=== PATIENT | female | born 1960 | race Caucasian/White ===

== ENCOUNTER → 2022-08-13 | Outpatient (CLI) | payer OTHER, SELFPAY ==
--- NOTE | 2022-08-13 14:40 | FLU_PTH ---
PATIENT: FELIPA CONTRERAS LOC: [facility] U#:[id number] AGE/SX: 62/F ROOM: RE08/13/[address]: Dr. Wilfrid Gomez MD : 1960 BED: DIS: 08/13/2022 SPEC #: [id number] RECD: 08/13/22 17:08 STATUS: ANI SUNSHINE #: [id number] DAWOOD: 08/13/22 14:[address]: Wilfrid Gomez DEPT: CYTOLOGY RECD BY: Cassie Johnson ENTERED: 08/16/22 08:35 SP TYPE: Fluid OTHR DR: Dr. Anali Cohen DO Tissues: A - Thyroid gland, NOS B - Thyroid gland, NOS C - Thyroid gland, NOS D - Thyroid gland, NOS Procedures: Special Stain Group II Surgery Specimen Level IV Cytospin Fluid Cytology Other HEADER OPERATION: Fine needle aspiration, right mid and left mid thyroid PRE-OP DIAGNOSIS: Multiple thyroid nodules TISSUE SUBMITTED: A - FNA, right mid thyroid nodule fluid, B - FNA, right mid thyroid nodule x4 slides, C - FNA, left mid inferior thyroid nodule fluid, D - FNA, left mid inferior thyroid nodule x4 slides DIAGNOSIS CYTOLOGY A. Fine needle aspiration, right mid thyroid nodule (cytospin and cell block): Negative for malignant cells. See comment. B. Fine needle aspiration, right mid thyroid nodule (smears): Negative for malignant cells. See comment. C. Fine needle aspiration, left mid inferior thyroid nodule (cytospin and cell block): Benign, consistent with benign follicular/colloid nodule with cystic change (Thaxton Category II). See comment. D. Fine needle aspiration, left mid inferior thyroid nodule (smears): Benign, consistent with benign follicular/colloid nodule with cystic change (Thaxton Category II). See comment. AM:kasia 08/17/2022 COMMENT A. The specimen primarily contains blood with rare benign follicular cells. B. The specimen primarily contains blood and rare benign follicular cells. The paucity of follicular cells precludes further evaluation. C & D. The Thaxton System for thyroid diagnostic categorization was used in the evaluation of this case. Adequate for evaluation. CYTOLOGY STUDY Slides are reviewed. CYTOLOGY GROSS A - Received is 15 ml of red cloudy fluid with particles labeled with the patient's name and and designated per the requisition as right mid thyroid nodule. Submitted for cytology preparation including cell block. B - Received are four smears labeled with the patient's name and designated per the requisition as right mid thyroid nodule. Submitted for staining. C - Received is 15 ml of red cloudy fluid with particles labeled with the patient's name and and designated per the requisition as left mid inferior thyroid nodule. Submitted for cytology preparation including cell block. D - Received are four smears labeled with the patient's name and designated per the requisition as left mid inferior thyroid nodule. Submitted for staining. / kasia 08/16/2022 TC:5 CPT: 61963 x2, 40495 x4
[2022-08-13 16:07] LABS: Free T3 3.1 pg/mL (2.18-3.98); T4 Free Direct 0.95 ng/dL (0.76-1.46)
[2022-08-16 16:53] LABS: Thyroid Stim Immunoglob <0.10 IU/L (0.00-0.55)
== END | disposition home or self-care (01) ==
LOC: LAB 15:11
PROVIDERS: Internal Medicine Endocrinology, Diabetes & Metabolism; PCP Internal Medicine; Referring Provider Surgery; Visit Provider Surgery
DX: E04.2 Nontoxic multinodular goiter (principal)
CPT/HCPCS: 36415; 84439; 84443; 84445; 84481; 88108; 88161; 88305; 88313

== ENCOUNTER → 2022-09-01 | Outpatient (CLI) | payer OTHER, SELFPAY ==
--- NOTE | 2022-09-01 07:23 | NM_ITS ---
CLINICAL: 62-year-old female with history of thyroid nodularity. I-123 THYROID UPTAKE and SCAN COMPARISON: None available FINDINGS: The patient was administered a 304 uCi I-123 capsule by mouth. The 4-hour I-123 radioactive iodine thyroidal uptake was calculated to be 11.3 % (normal 5 to 25 %). The 24-hour I-123 radioactive iodine thyroidal uptake was calculated to be 37.1 % (normal 5 to 40 %). The I-123 thyroid scan demonstrates homogeneous radiopharmaceutical concentration throughout the left lobe of a U-shaped thyroid gland. A distinct hypofunctioning nodule is defined in the midpole of the right lobe thyroid colloid. NM/Thyroid Image Quant Measure IMPRESSION: 1. NORMAL 4- and 24-hour I-123 radioactive iodine thyroidal uptakes. 2. The I-123 thyroid scan demonstrates a hypofunctioning nodule involving the midpole of the right lobe thyroid colloid. Histopathologic sampling may be indicated. Electronically Signed: Spencer Calderon, at 20:56 EST ,
== END | disposition home or self-care (01) ==
PROVIDERS: PCP Internal Medicine; Referring Provider Surgery; Visit Provider Surgery
DX: E04.9 Nontoxic goiter, unspecified (principal)
CPT/HCPCS: 78014; A9516

== ENCOUNTER → 2022-09-29 | Outpatient (CLI) | payer OTHER, SELFPAY ==
[2022-09-29 14:08] LABS: Free T3 2.8 pg/mL (2.18-3.98); T4 Free Direct 0.84 ng/dL (0.76-1.46); Thyroid Stim Hormone (TSH) 0.14 uIU/mL (0.358-3.74)
== END | disposition home or self-care (01) ==
LOC: LAB 13:16
PROVIDERS: PCP Internal Medicine; Visit Provider Internal Medicine Endocrinology, Diabetes & Metabolism
DX: E05.90 Thyrotoxicosis, unspecified without thyrotoxic crisis or storm (principal)
CPT/HCPCS: 36415; 84439; 84443; 84481

== ENCOUNTER 2022-11-03 11:16 | Observation (INO) | payer OTHER, SELFPAY ==
[2022-11-03] VITALS (14 sets, daily range): BP systolic 112–148; BP diastolic 68–91; PULSE 61–90; RESP 14–18; TEMP 36.4–37.2; O2SAT 94–96; BMI 32.3
[2022-11-03] MEDS: Lactated Ringers 1,000 ML 15 ML IV ×2 (06:45→11:47)
[2022-11-03 07:16] LABS: Hematocrit 39.2 % (37-47); Hemoglobin 13.1 g/dL (12.0-15.0); Mean Corp Hgb Conc 33.4 g/dL (32-36); Mean Corpuscular Hgb 28.7 pg (27.0-32.0); Mean Platelet Vol. 9.2 fl (6.2-12.0); Platelet Count 288 K/mm3 (150-450); RBC Distribution Width CV 12.1 % (11.6-14.6); RBC Distribution Width SD 37.9 fl (35.1-43.9); Red Blood Count 4.56 M/mm3 (4.2-5.4); White Blood Count 5.3 K/mm3 (4.4-11.0)
--- NOTE | 2022-11-03 07:39 | PCM.HP.BLA ---
History and Physical Date of Admission: 11/03/22 Date of Service:? 09/29/22 MR#: [id number] Acct: [id number] Name:FELIPA FRANCO Rep #: [id number] : 1960 ? ? Provider: Dr. Wilfrid Gomez MD Age/Sex:? 62/F ? ? Location: [facility] Status: Signed Intake Vital Signs ? 09/29/2213:46 Height 5 ft 5 in Weight: 192 lb BMI 31.9 BP 125/76 H Blood Pressure Location Rt brachial Position Sitting Respiration 18 Intake Visit Reasons:?DISCUSS THYROID SURGERY Chief Complaint: discuss surgery Criminal Records Technician Required: No Is patient in pain?: No Allergies No Known Allergies Allergy (Unverified 09/29/22 13:46) Medications methimazole 5 mg tablet 5 mg PO .one every other day #30 tabs 09/02/22 [Rx] PFSH Medical History? Cholecystectomy planned Colonoscopy planned Nodular goiter Uterine fibroid Surgical History? History of cervical polypectomy Family History? Sister Breast cancer DiabetesGrandmother Diabetes CVA (cerebral vascular accident)Other Alcohol abuse Bowel disease Social History? Smoking Status:? Former smoker alcohol intake:? current alcohol intake frequency: a few times a week Alcohol type: wine substance use type:? does not use what type of physical activity do you participate in:? walking frequency:? 1-2 times per week HPI HPI HPI: Patient is 62-year-old female who follows up for discussion related to her history of thyroid nodules.? Her initial surgical consultation was 08/13/2022.? She also underwent a thyroid uptake scan on 09/02/2022 that showed a dominant right-sided hypofunctioning nodule.? She presents with her for this evaluation.? Her does most of the initial talking and states that they are all on edge due to a third diagnosis of cancer in one of her sisters over the .? Within this context, they are eager to move forward with what ever has to be done given that cancer remains a consideration.? Mrs. Casas relates that she was recently placed on methimazole through Dr. Antunez of endocrinology and has thyroid function studies pending. Below is recapitulated from patient's initial consultation reason review: Patient is a 62-year-old female who presents for thyroid nodules.? They are referred for surgical consultation from Dr. Antunez.? Patient states that she was told she may have a goiter over 20 years ago, but was told there would be nothing further to follow-up on and the issue was dropped.? However her current presentation is occasioned after patient began experiencing palpitations at night.? She states for the last 1 year she could feel her heart beating and would wake up to this sensation.? She presented to her PCP, Dr. Cohen with this complaint who then requested laboratories and an ultrasound.? Patient states that she went to an ENT physician through [facility] and a fine-needle aspirate was performed of patient's right thyroid nodule.? Unfortunately this biopsy resulted as nondiagnostic due to insufficient material.? She was advised to then follow-up with endocrinology and determine what their recommendation would be. They do not experience difficulty with swallowing.? They do not complain of a new cough.? They do not appreciate new voice changes.? They do have a history of snoring/sleep apnea.? Patient's states that his has a history of snoring, but reports that it is been worst in the last 1 year.? He also comments that she occasionally wakes up gasping for air. To this end there is a history of recent fatigue.? Mrs. Casas reports that overall she sleeps well and denies any issues with insomnia.? However she does not awaken feeling refreshed.? She goes on to detail that of the 8 hours that she is asleep she will only sleep for 5 of those hours.? She reports this really is the majority case for her sleeping.? With her lack of energy she is simply not able to do the things (I) used to do.? She expressly denies this being a manifestation of any sort of depression or anxiety. Additionally, their weight has been overall stable and she comments on may be a 5 pound weight gain since May. ? They do have a history of heat intolerance and states she frequently has sweaty palms. ? Regarding her experience with palpitations, patient states that she was ordered ambulatory telemetry.? She states that she was found to have tachyarrhythmias with a maximum rate of at least 150 bpm.? She is not able to relate what that arrhythmia was called.? She denies any follow-up with cardiology, but was told this may be related to her thyroid issue.? Other symptoms include: No history of tremors.? From a GI perspective patient has had a history of diarrhea, but states this has been more often in the last 1 year.? She is up-to-date on her colonoscopies and her last scope came in 2019 where she was diagnosed with polyps.? She reports her next scope is due in 2023.? She reports that she has had some visual changes of late.? She states she was initially told she has some cataracts, but in her most recent visit she reports that her prescription is changed for the better.? Along with this she notes that she has a history of dry eyes, but is unable to distinguish this from some seasonal allergies. They do have a family history of thyroid disorders.? She reports that she has a couple of sisters who both required medication for their thyroid issue.? She is not able to state whether they deal with overactive or underactive glands.? She also notes that one of her nieces was diagnosed with a multinodular goiter.? No relatives have required surgery.? There is no history of prior radiation exposure. Previous work-up has included thyroid ultrasound.? This identified at least 4 nodules including a dominant right mid nodule that measured 3.4 x 2.2 x 3.9 cm.? Due to presence of solid composition, isoechoic echogenicity, and presence of echogenic foci it was rated a TI-RADS 5.? In the left thyroid lobe radiology noted a 1.4 x 1.5 x 1.1 cm nodule.? This was rated a TI-RADS 4 on the account of a mixed cystic and solid composition, hypoechoic echogenicity, and the presence of punctate echogenic foci.? As stated above a FNA was performed for the right-sided nodule but was deemed nondiagnostic.? Other tests include: TSH: 0.13 (06/02/2022), free T3: 3.4 (06/02/2022), free T4: 0.76 (06/02/2022). ROS General General: No weight change, appetite, fatigue, colon cancer, breast cancer or weakness HEENT HEENT: No difficulty swallowing, eye injury, eye surgery, swollen glands or hoarseness Endo Endocrine: No thyroid disease, diabetes mellitus, thyroid cancer, Hair loss, heat intolerance or cold intolerance Skin Skin: No rash or changing moles Breast Breast: No left breast lump, right breast lump, nipple discharge, breast pain, abnormal mammogram, abnormal US or breast enlargement Musc Musculoskeletal: No back problems, arthritis, rheumatoid arthritis, gout or joint pain Cardio Cardiovascular: No murmur, pacemaker, heart disease, atrial fibrillation, high blood pressure, heart attack, heart stent, palpitations, shortness of breat with exertion or chest pain Psych Psychiatric: No depression, anxiety or hearing voices Resp Respiratory: No shortness of breath, No sleep apnea, No cough, No COPD, No asthma, No emphysema and No wheezing Gastro Gastrointestinal: No abdominal pain, No nausea or vomiting, No diarrhea, No constipation, No blood in stool, No acid reflux, No hemorrhoids, No ulcers, No gallbladder problem and No black,tarry stools Harvey Hematologic: No blood thinners, No blood disorders, No bleeding, No anemia and No blood clots Neuro Neurologic: No system reviewed and no additional complaints, except as documented, No as per HPI, No abnormal gait, No abnormal hearing, No abnormal movements, No abnormal speech, No behavioral changes, No burning sensations, No confusion, No convulsions, No disequilibrium, No dizziness, No localized weakness, No frequent falls, No headache(s), No lack of coordination, No loss of vision, No memory loss, No numbness, No other visual disturbances, No radicular pain, No restless legs, No sensory deficit, No syncope, No tingling, No tremor(s), No weakness and No other Exam Const General: cooperative, no acute distress and anxious Orientation: alert, awake and oriented x3 Neck Other: Easily palpable right thyroid nodule.? No other jugular chain or cervical lymphadenopathy palpable. Assessment and Plan Assessment and Plan (1) Multiple thyroid nodules: ?Status:?Acute ?Comment: Patient is a 62-year-old female, hyperthyroid from an endocrine standpoint, with multiple thyroid nodules that met criteria for FNA biopsy via ACR criteria.? These biopsies were undertaken with ultrasound guidance on the right TI-RADS 5 and left TI-RADS 4 nodules during initial consultation visit 08/13/2022.? Right thyroid nodule was nondiagnostic due to a paucity of follicular cells, but no malignant cells were seen amongst those follicular cells present.? Previously the right thyroid nodule was biopsied, but also had a nondiagnostic result.? Patient's left thyroid nodule returned as a clear, benign Fenwick 2 result.? In the interim since this FNA procedure, patient underwent right uptake scan on 09/02/2022.? This demonstrated a dominant, hypofunctioning right-sided thyroid nodule.? Combining patient's nondiagnostic result with a TI-RADS rating on ultrasound and hypofunctioning appearance on uptake scan, I did recommend surgical intervention to exclude the possibility of cancer.? I held a lengthy conversation with patient and her regarding the surgical options for total thyroidectomy versus hemithyroidectomy.? I shared with them the attendant risks and perceived benefits.? I shared with them about plans for intraoperative nerve monitoring as a means of trying to mitigate the risk for recurrent laryngeal nerve injury.? Ultimately, I did recommend consideration of a total thyroidectomy with intraoperative nerve monitoring.? With this procedure we would like to reduce patient's risk for additional operative intervention even in the instance that pathology did find a cancer since it is probable the size would be somewhere near 4 cm.? Further, it may be seen as advantageous in light of patient's ongoing hyperthyroid state as a means of better regulating her thyroid function postoperatively.? I did share with patient and her that this would mean an expectation for overnight observation with the procedure.? I also did briefly describe post procedure expectations at patient's request.? They are excepting of all of this information and agree with the recommendation for total thyroidectomy. ?Plan: ? Plan for total thyroidectomy with intraoperative nerve monitoring.? We will plan for overnight observational stay with procedure (2) Hyperthyroidism: ?Status:?Acute ?Comment: Anti-TSI was negative.? Patient does not have a hyperfunctioning, but a hypofunctioning nodule of the right thyroid lobe.? Management discussed above.? Patient is currently being treated for hyperthyroidism with methimazole, but most recent TSH?obtained today?indicates further suppression may be required.? We will confer with endocrinology on this issue to minimize patient's perioperative risk. ?Plan: ? Follow-up with endocrinology regarding surgical plan and status of patient's thyroid functions (3) Nodular goiter: ?Status:?Acute ?Comment: Patient with minimal compressive symptomology.? Does endorse a history of snoring and possible sleep apnea. ?Plan: Total thyroidectomy recommended as discussed above I have examined the patient and the H&P has been reviewed. There are no clinical changes since date of exam. Patient's questions were answered to their satisfaction and they are ready to proceed with the procedure as discussed above. We have confirmed that patient will be observed overnight for neck monitoring and calcium check in the a.m.
--- NOTE | 2022-11-03 08:00 | THYROID_PTH ---
PATIENT: FELIPA CONTRERAS LOC: [facility] U#:[id number] AGE/SX: 62/F ROOM: ND312 RE11/03/[address]: Dr. Wilfrid Gomez MD : 1960 BED: 1 DIS: 11/04/2022 SPEC #: [id number] RECD: 11/03/22 13:42 STATUS: ANI REJohanna #: [id number] DAWOOD: 11/03/22 08:[address]: Wilfrid Gomez DEPT: SURGICAL PATHOLOGY RECD BY: Cassie Johnson ENTERED: 11/04/22 10:00 SP TYPE: THYROID OTHR DR: Dr. Anali Cohen, DO Tissues: Thyroid gland, NOS Procedures: Surgery Specimen Level V HEADER OPERATION: Total thyroidectomy, intraoperative nerve monitoring PRE-OP DIAGNOSIS: Multiple thyroid nodules, hyperthyroidism, nodular goiter TISSUE SUBMITTED: Total thyroid, stitch right superior pole MICROSCOPIC DIAGNOSIS Thyroid, total thyroidectomy: Multinodular goiter. Focal chronic inflammation. One minute benign perithyroidal lymph node. SJ:kasia 11/05/2022 COMMENT Please make reference to previous specimen ([id number]) fine needle aspiration, right mid thyroid nodule, FNA (A&B), ?negative for malignancy cells? and (C&D) right inferior thyroid nodule, FNA, ?benign, consistent with benign follicular cells/colloid nodule with cystic changes.? MICROSCOPIC DESCRIPTION Slides are reviewed. GROSS DESCRIPTION Received in fixative is one container labeled with the patient's name and designated thyroid. The specimen consists of a thyroidectomy specimen measuring 7 x 5 x 2.2 cm. The right lobe measures 4.5 x 5 x 2.2. The isthmus measures 2 x 1 x 0.5 cm. The left lobe measures 5.6 x 2.2 x 2 cm. The specimen weighs 34 gm and is differentially inked as follows: entire posterior surface ? black, right lobe ? blue, left lobe ? green and isthmus ? red. Serial sections of the right lobe reveal a gelatinous nodule with hemorrhage and focal microcalcifications measuring 4 x 2.2 x 2 cm. Serial sections of the isthmus do not reveal mass lesions. Serial sections of the left lobe reveal a gelatinous nodule measuring 4 x 2 x 1.8 cm. This nodule appears to be lobulated. Public Health Physician sections are submitted in ten cassettes as follows: 1 ? isthmus, 2-5 ? right lobe of thyroid, 6-10 ? left lobe of thyroid. / AM:kasia 11/04/2022 TC:5 CPT: 00886
--- NOTE | 2022-11-03 11:06 | PCM.OPRPT ---
Report of Operation Date of Procedure: 11/03/22 Pre-Operative Diagnosis: 1. Multinodular goiter with nondiagnostic right thyroid nodule 2. Hyperthyroidism on methimazole Post-Operative Diagnosis: Same Surgery/Procedure Performed:: Total thyroidectomy with intraoperative nerve monitoring Description of Surgical Findings:: ? Dominant right mid to inferior pole thyroid nodule easily from overlying sternothyroid muscle ? Excellent Nims signals from bilateral recurrent laryngeal nerves ? Grossly identified bilateral superior parathyroid glands in left inferior parathyroid gland Surgeon: Wilfrid Gomez rice dryer mechanic: Louisa Bailey Type of Anesthesia: General/Supplemental Anesthesiologist: Hamlet Graves Specimen's removed: Total thyroid with stitch marking right superior pole Drains: None Estimated Blood Loss (mL): 10 Description of Procedure: After appropriate identification in the preoperative holding area, the patient was brought to the operating room where she was positioned supine with arms tucked taking care to pad the ulnar nerve bilaterally. Induction of general endotracheal anesthetic was begun and a NIMS tube was placed under glidescope view to confirm coaptation with the vocal cords anteriorly. Tube was then secured and the patient was positioned with a shoulder roll so that her head was in extension but supported. The Nims electrodes were placed and connected to the monitor. We had appropriate resistance showing on the monitor and tapping at the level of the cricoid produce a graphical representation of the impulse on the monitor. Patient's neck was then prepped and draped in usual sterile fashion and a formal timeout was conducted with those present. The lowest skin fold to the sternal notch was selected for incision site (this resided approximately 1 and half fingerbreadths cephalad to the notch). Then our incision site was instilled with local anesthetic and a transverse cervical incision was extended for 2.5 cm on either side of midline. Electrocautery was used to deepen this incision through the level of the platysma. Subplatysmal flaps were raised with the use of electrocautery and blunt dissection. The strap muscles were then divided along the medial raphe bringing us down to the level of the thyroid. Capsular attachments to the thyroid were divided with the use of electrocautery. Retractors were placed providing visualization of the superior pole of the right lobe of the thyroid. The vessels of the superior pole were sequentially ligated with the use of the LigaSure device. As we moved towards the thyroid gland away from the pole vessels, we encountered a dominant right mid-inferior nodule but found this easily from the overlying strap muscles. We then moved inferiorly and divided those polar vessels with LigaSure. The inferior parathyroid gland was grossly visualized and preserved with this division. With the poles freed the thyroid was mobilized medially by bluntly the remaining strap muscle fibers from the thyroid capsule and using LigaSure to divide the middle thyroid vein. While retracting the thyroid medially, I used meticulous blunt dissection parallel to the presumed course of the recurrent laryngeal nerve and exposed the tracheoesophageal groove. Here I encountered clear evidence of these under both some and shortly thereafter a positive signal from our Nims system. The nerve positively identified, I began carefully dissecting off the remaining tracheal attachments around the area of the nerve. The thyroid proved to be somewhat elastic in this region so it from the trachea rather nicely using limited blunt dissection and bipolar energy to divide any vessels encountered. Once the right thyroid lobe was elevated at least 2 to 3 mm anterior to the insertion point, electrocautery was used to remove the isthmus from the anterior surface of the trachea. There did not appear to be a pyramidal lobe when the isthmus was examined superiorly. We then moved to removal of the left thyroid lobe with a similar technique taking care to remove the strap muscles from their capsular attachments to the lobe. The superior pole vessels were taken in like fashion with use of LigaSure energy. The inferior pole vessels and middle thyroid vein were also divided in this fashion. As a poles were taken I believed a grossly observed the left superior parathyroid and left inferior parathyroid glands tucked within their respective soft tissue locations. I minimized any dissection in this area to avoid risk for hypoparathyroidism postoperatively. As the thyroid was medialized and removed from the surgical bed I performed very fine blunt dissection along the attachments between the thyroid and the trachea. I encountered a positive signal with our Nims system and using some additional blunt dissection was able to uncover a broad-based left recurrent laryngeal nerve. Additional fine blunt dissection was used to remove the remaining thyroid attachments to the trachea at the ligament of Nicholson. I used a fine right angle to develop a plane between the projected course of the nerve and the remaining ligament of Nicholson. Given the dense adherence to the trachea at this point, I elected to leave a minuscule ~2 mg thyroid remnant and placed 2 silk ligatures around this bundle of thyroid tissue and sharply divided the thyroid distal to these ligatures. Nerve function was confirmed with our Nims system. Again, once we were 2 to 3 mm away from the area of the nerve insertion, the gland was removed from the trachea with the use of electrocautery. Our final specimen was marked with a 3-0 Vicryl stitch through the right upper pole and passed off the field for pathologic processing. Both surgical cavities were inspected for hemostasis; closer to the nerve there was some additional oozing and Surgicel hemostatic agent was placed bilaterally while pressure was applied. Once this pressure was relieved, the surgical cavity was again inspected and we found hemostasis to be intact on the right. On the left side there was still some persistent oozing just superior to the insertion site of the nerve so I, using great caution, used electrocautery to obtain hemostasis. Again, Surgicel was placed over the site and this time it remained unsaturated. The platysmal flaps were closed with interrupted 3-0 Vicryl. Some additional local anesthetic was infiltrated throughout the dermis and the skin was closed in a subcuticular fashion using 4-0 Monocryl. Steri-Strips were applied. Telfa and Tegaderm were used as a dressing. The patient was then awakened from anesthetic without event and was taken to PACU for ongoing recovery. Her voice quality was noted to be normal within the operating room following extubation. Complications None Admit VTE Documentation VTE Mechan Device Prophylaxis: SCD's Procedures Endocrine CF Procedures [id number]: [id number] Removal of thyroid
[2022-11-03] MEDS: 0.9% Normal Saline 1,000 ML 125 ML IV ×2 (13:14→21:31)
[2022-11-03] MEDS: Ibuprofen 400 MG Tablet PO (17:09)
[2022-11-03] MEDS: Calcium Carb/Vitamin D 1 TABLET Tablet PO (17:09)
[2022-11-03] MEDS: BENZOCAINE/MENTHOL 1 LOZENGE MUCOUS MEM (18:50)
[2022-11-04] MEDS: Ibuprofen 400 MG Tablet PO ×3 (00:05→11:24)
[2022-11-04 02:31] VITALS: BP 123/73; PULSE 71; RESP 16; TEMP 37.2; O2SAT 96
[2022-11-04] MEDS: Levothyroxine 137 MCG Tablet PO (05:23)
[2022-11-04] MEDS: 0.9% Normal Saline 1,000 ML 125 ML IV (05:23)
[2022-11-04 07:11] VITALS: PULSE 90
[2022-11-04 07:17] LABS: PTHIN 8.5 pg/mL (18.4-80.1)
[2022-11-04 07:19] LABS: Anion Gap 6 (5-15); BUN 15 mg/dL (7-18); BUN/Creat Ratio 15.2 RATIO (10-20); Calcium,Total 7.9 mg/dL (8.5-10.1); Chloride 108 mmol/L (98-107); Creatinine, Serum 0.99 mg/dL (0.55-1.02); EST Glomerular Filtration Rate 60 mL/min (>60); Est Glom Filt Rate - Afr Amer 73 mL/min (>60); Estimated Creatinine Clearance 51.66 ml/min; Glucose 103 mg/dL (74-106); Magnesium 2.1 mg/dL (1.6-2.6); Potassium 3.6 mmol/L (3.5-5.1); Sodium Level 139 mmol/L (136-145)
[2022-11-04] MEDS: Calcium Carb/Vitamin D 1 TABLET Tablet PO ×2 (07:24→12:12)
[2022-11-04 09:29] VITALS: BP 120/69; PULSE 60; RESP 18; TEMP 36.8; O2SAT 98
[2022-11-04] MEDS: Calcitriol 0.25 MCG Capsule 0.5 MCG PO (10:23)
--- NOTE | 2022-11-04 11:21 | DCINST_ITS ---
Discharge Instructions Diet Discharge Diet: Light diet - advance as tolerated Activity Discharge Activity: May Not Drive (3-5 days) and May Shower (In 2 days) Dressing / Incision Call your doctor if your incision/area has: Continuous Slow Oozing, Sudden Increased Bleeding, Increased Pain/ Swelling, Increased Redness, Foul Smelling Discharge and Swelling at the incision site Call your doctor if you observe: Fever of 101 or Higher Suture Line Care: Avoid Pulling/Pushing and Avoid Pinching/Bending Remove Dressing in: 2 days Cleanse incision/area with: Soap & Water Follow Up Care Please Follow Up With: Wilfrid Gomez MD When: 1 week. Please call our office for an appointment Test Results: Test results from this visit will be discussed in further detail at your follow- up appointment, if applicable. Discharge Plan Admission Admit Date/Time: 11/03/22 11:16 Primary Reason for Your Visit: Total Thyroidectomy Attending Provider: Wilfrid Gomez Primary Care Provider: Anali Cohen Instructions Additional Instructions / Restrictions: Your PTH and Calcum levels were low. We are recommending Calcitriol in the morning daily. Recommend taking 1 tablet of Os marcio in the morning with the Calcitriol, 1 tablet at lunch time and 2 tablets at bedtime. If you feel any numbness/tingling of the fingertips or hands or around your lips, you may start to take extra strength TUMs. If these symptoms start, please contact our office and update us at [phone]. You will be started on Levothyroxine daily. You will need to take this medication in the morning away from any other medications at the same time each morning. Medication will need to be taken at least 1 hour prior to any other medications. Recommend Motrin as needed for pain, 400 mg every 8 hours as needed for pain Recommend ice at the incision site for the next 24 hours. Recommend 20 minutes on the incision and 20 minutes off the incision. Sleep with the head of the bed elevated for the next 3 days Discharge Orders/Prescriptions Prescriptions: New calcitriol 0.25 mcg Capsule 0.5 mcg PO DAILY Qty: 30 1RF Rx Instructions: Take 1 tablet daily for 6 weeks calcium carbonate-vitamin D3 [Oyster Shell Calcium-Vit D3] 500 mg-5 mcg (200 unit) Tablet 1 tab PO TIDCM Qty: 168 0RF Rx Instructions: Take 1 tablet at breakfast and lunch. Take 2 tablets at bedtime for 6 weeks levothyroxine 137 mcg Tablet 137 mcg PO 0600 Qty: 30 1RF Discontinued methimazole 5 mg tablet 5 mg PO QODAY Referrals / Follow Up: Anali Cohen DO [Primary Care Provider] - Disposition Disposition (needs filled in before D/C Order can be placed): Home, Self Care
--- NOTE | 2022-11-04 11:32 | PCM.PN.SRG ---
Subjective Subjective Patient evaluated resting comfortably in bed. She notes very minimal amount of incisional discomfort. Patient's calcium level and pTH were low. Patient denies any numbness/tingling of the fingertips or perioral. Patient denies a sore throat. Objective Data Objective Data Vital Signs: Vital Signs Temp Pulse Resp BP Pulse Ox O2 Del Method O2 Flow Rate 98.3 F 60 18 120/69 98 Room Air 2 11/04/22 09:29 11/04/22 09:29 11/04/22 09:29 11/04/22 09:29 11/04/22 09:29 11/04/22 09:29 11/03/22 17:52 Oxygen Flow Rate (L/min) 2 Oxygen Delivery Method Room Air Weight: 194 lb 0.108 oz Body Mass Index (BMI) 32.3 Intake & Output: Intake and Output for Last 24 Hours 11/02/22 11/03/22 11/04/22 23:59 23:59 23:59 Intake Total 2310.5 / 2310.5 2041.66 / 2041.66 Output Total 500 / 500 Balance 2310.5 / 2310.5 1541.66 / 1541.66 Lab / Micro Data Result Diagrams: 11/03/22 07:05 11/04/22 06:45 Labs: Laboratory Results - last 24 hr 11/04/22 06:45: Sodium 139, Potassium 3.6, Chloride 108 H, Carbon Dioxide 25.0, Anion Gap 6, BUN 15, Creatinine 0.99, Estim Creat Clear Calc 51.66, Est GFR (MDRD) Af Amer 73, Est GFR (MDRD) Non-Af 60, BUN/Creatinine Ratio 15.2, Glucose 103, Calcium 7.9 L, Magnesium 2.1 11/04/22 06:45: PTH Intact 8.5 L Physical Exam Neck Neck Narrative: Anterior cervical incision- c/d/i. No erythema or infection noted. Op-site dressing in place. No drainage on the dressing. Minimal amount of swelling noted. Assessment & Plan Assessment/Plan (1) Multiple thyroid nodules: PLAN: Recommend immediate calcitriol and os marcio tablets If patient tolerated breakfast, patient may be discharged Discharge instructions as below were placed in the discharge instructions: Your PTH and Calcum levels were low. We are recommending Calcitriol in the morning daily. Recommend taking 1 tablet of Os marcio in the morning with the Calcitriol, 1 tablet at lunch time and 2 tablets at bedtime. If you feel any numbness/tingling of the fingertips or hands or around your lips, you may start to take extra strength TUMs. If these symptoms start, please contact our office and update us at [phone]. You will be started on Levothyroxine daily. You will need to take this medication in the morning away from any other medications at the same time each morning. Medication will need to be taken at least 1 hour prior to any other medications. Recommend Motrin as needed for pain, 400 mg every 8 hours as needed for pain Recommend ice at the incision site for the next 24 hours. Recommend 20 minutes on the incision and 20 minutes off the incision. Sleep with the head of the bed elevated for the next 3 days Charges/Coding Visit Charges Inpatient E&M: 63222 Init Hosp L1 (post-op; no charge)
[2022-11-04 12:39] VITALS: BP 132/83; PULSE 69; RESP 18; TEMP 37.2; O2SAT 96
== END 2022-11-04 13:37 | disposition home or self-care (01) ==
LOC: SDC 13:36 → MS3 13:38
PROVIDERS: Anesthesiology; Admitting Provider Surgery; PCP Internal Medicine; Referring Provider Surgery; Visit Provider Surgery
PROC: (CPT 60240; principal; 2022-11-03 07:45)
DX: E05.20 Thyrotoxicosis with toxic multinodular goiter without thyrotoxic crisis or storm (principal); Z87.891 Personal history of nicotine dependence; K21.9 Gastro-esophageal reflux disease without esophagitis; I10 Essential (primary) hypertension; E61.1 Iron deficiency; R06.02 Shortness of breath; G25.81 Restless legs syndrome; Z79.899 Other long term (current) drug therapy
CPT/HCPCS: 60240; 00320; 36415; 80048; 83735; 83970; 85027; 88307; 93005; 96360; 96361; 99221; J7030; J7120; G0378; J2405

== ENCOUNTER → 2022-11-10 | Outpatient (CLI) | payer OTHER, SELFPAY ==
[2022-11-10 14:03] LABS: Calcium,Total 8.9 mg/dL (8.5-10.1)
[2022-11-10 14:10] LABS: PTHIN 6.3 pg/mL (18.4-80.1)
== END | disposition home or self-care (01) ==
LOC: PAVLAB 13:21
PROVIDERS: PCP Internal Medicine; Referring Provider Physician Assistant; Visit Provider Physician Assistant
DX: E05.90 Thyrotoxicosis, unspecified without thyrotoxic crisis or storm (principal)
CPT/HCPCS: 36415; 82310; 83970

== ENCOUNTER → 2022-12-08 | Outpatient (CLI) | payer OTHER, SELFPAY ==
[2022-12-08 08:49] LABS: Calcium,Total 9.9 mg/dL (8.5-10.1); Free T3 2.2 pg/mL (2.18-3.98); Thyroid Stim Hormone (TSH) 0.42 uIU/mL (0.358-3.74)
[2022-12-08 08:57] LABS: PTHIN < 6.3 pg/mL (18.4-80.1)
== END | disposition home or self-care (01) ==
LOC: PAVLAB 08:13
PROVIDERS: PCP Internal Medicine; Referring Provider Surgery; Visit Provider Surgery
DX: E89.0 Postprocedural hypothyroidism (principal)
CPT/HCPCS: 36415; 82310; 83970; 84436; 84443; 84481

== ENCOUNTER → 2022-12-22 | Outpatient (CLI) | payer OTHER, SELFPAY ==
[2022-12-22 11:23] LABS: Calcium,Total 9.7 mg/dL (8.5-10.1)
[2022-12-22 11:45] LABS: PTHIN < 6.3 pg/mL (18.4-80.1)
== END | disposition home or self-care (01) ==
LOC: PAVLAB 10:21
PROVIDERS: PCP Internal Medicine; Referring Provider Surgery; Visit Provider Surgery
DX: E89.0 Postprocedural hypothyroidism (principal)
CPT/HCPCS: 36415; 82310; 83970

== ENCOUNTER → 2023-01-10 | Outpatient (CLI) | payer OTHER, SELFPAY ==
[2023-01-10 11:14] LABS: PTHIN 32.8 pg/mL (18.4-80.1)
[2023-01-10 11:20] LABS: Calcium,Total 8.8 mg/dL (8.5-10.1)
== END | disposition home or self-care (01) ==
LOC: PAVLAB 10:33
PROVIDERS: PCP Internal Medicine; Referring Provider Surgery; Visit Provider Surgery
DX: E89.2 Postprocedural hypoparathyroidism (principal); E89.0 Postprocedural hypothyroidism
CPT/HCPCS: 36415; 82310; 83970

== ENCOUNTER → 2023-01-27 | Outpatient (CLI) | payer OTHER, SELFPAY ==
[2023-01-27 10:59] LABS: PTHIN 28.3 pg/mL (18.4-80.1)
== END | disposition home or self-care (01) ==
LOC: PAVLAB 10:32
PROVIDERS: PCP Internal Medicine; Referring Provider Surgery; Visit Provider Surgery
DX: E89.2 Postprocedural hypoparathyroidism (principal); E89.0 Postprocedural hypothyroidism
CPT/HCPCS: 36415; 82310; 83970

== ENCOUNTER → 2023-05-24 | Outpatient (CLI) | payer OTHER, SELFPAY ==
[2023-05-24 09:26] LABS: Free T3 2.4 pg/mL (2.18-3.98); T4 Total, Thyroxin 14.1 ug/dL (4.8-13.9); Thyroid Stim Hormone (TSH) 0.06 uIU/mL (0.358-3.74)
== END | disposition home or self-care (01) ==
LOC: PAVLAB 08:53
PROVIDERS: PCP Internal Medicine; Referring Provider Surgery; Visit Provider Surgery
DX: E89.0 Postprocedural hypothyroidism (principal)
CPT/HCPCS: 36415; 84436; 84443; 84481

== ENCOUNTER → 2023-06-20 | Outpatient (CLI) | payer OTHER, SELFPAY ==
[2023-06-20 11:28] LABS: Free T3 2.4 pg/mL (2.18-3.98); T4 Total, Thyroxin 13.4 ug/dL (4.8-13.9); Thyroid Stim Hormone (TSH) 0.11 uIU/mL (0.358-3.74)
== END | disposition home or self-care (01) ==
PROVIDERS: PCP Internal Medicine; Referring Provider Surgery; Visit Provider Surgery
DX: E89.2 Postprocedural hypoparathyroidism (principal); E89.0 Postprocedural hypothyroidism
CPT/HCPCS: 36415; 84436; 84443; 84481

== ENCOUNTER → 2023-08-03 | Outpatient (CLI) | payer OTHER, SELFPAY ==
[2023-08-03 11:14] LABS: Free T3 2.2 pg/mL (2.18-3.98); T4 Free Direct 1.07 ng/dL (0.76-1.46); Thyroid Stim Hormone (TSH) 1.18 uIU/mL (0.358-3.74)
== END | disposition home or self-care (01) ==
PROVIDERS: PCP Internal Medicine; Referring Provider Surgery; Visit Provider Surgery
DX: E89.2 Postprocedural hypoparathyroidism (principal)
CPT/HCPCS: 36415; 84439; 84443; 84481

== ENCOUNTER → 2025-05-06 | Outpatient (CLI) | payer OTHER, SELFPAY ==
--- NOTE | 2025-05-03 | LES_PTH ---
PATIENT: FELIPA CONTRERAS LOC: [facility] U#:[id number] AGE/SX: 65/F ROOM: RE05/06/[address]: Dr. Jignesh Johns MD : 1960 BED: DIS: 05/06/2025 SPEC #: [id number] RECD: 05/06/25 10:17 STATUS: ANI REQ #: [id number] DAWOOD: 05/03/25 00:[address]: Jignesh Johns DEPT: SURGICAL PATHOLOGY RECD BY: Dhruv Polanco ENTERED: 05/06/25 11:11 SP TYPE: Lesion OTHR DR: Dr. Anali Cohen, DO Tissues: A - Skin of eyelid, NOS Procedures: Surgery Specimen Level IV HEADER OPERATION: Lesion removal left upper eyelid PRE-OP DIAGNOSIS: Left upper lid lesion increased size with ulceration TISSUE SUBMITTED: A- Left upper eyelid biopsy MICROSCOPIC DIAGNOSIS A. Eyelid, left, upper, lesion, removal: Benign verrucous keratosis. MICROSCOPIC DESCRIPTION Slides are reviewed. GROSS DESCRIPTION A. Received in formalin labeled with the patient's name and date of . Designated as left upper lid is a 0.6 x 0.3 x 0.2 cm stone somewhat bosselated and friable skin shave devoid of orientation. The resection margin is inked black, the specimen is trisected and entirely submitted in 1 cassette. [place] 05/06/2025 CPT:33075
== END | disposition home or self-care (01) ==
PROVIDERS: PCP Internal Medicine; Referring Provider Ophthalmology; Visit Provider Ophthalmology
DX: L57.0 Actinic keratosis (principal)
CPT/HCPCS: 88305